=== PATIENT | male | born 1990 | race Caucasian/White ===

== ENCOUNTER 2021-04-19 18:48 | Emergency (ER) | payer OTHER ==
[2021-04-19 19:44] VITALS: BP 124/88
--- NOTE | 2021-04-19 19:53 | Emergency Department Report ---
ED Neuro Deficit HPI - General Chief Complaint: Weakness Stated Complaint: LEFT SIDE OF FACE NUMBNESS Time Seen by Provider: 04/19/21 19:45 Source: patient Mode of arrival: Ambulatory Limitations: No Limitations - History of Present Illness Initial Comments: The patient was evaluated in the emergency department for symptoms described in the history of present illness. He/she was evaluated in the context of the global COVID-19 pandemic, which necessitated consideration that the patient might be at risk for infection with the virus that causes COVID-19. Institutional protocols and algorithms that pertain to the evaluation of patients at risk for COVID-19 are in a state of rapid change based on information released by regulatory bodies including the CDC and federal and state organizations. These policies and algorithms were followed during the patient's care in the emergency department. Please note that these policies, procedures and recommendations changed on a rapid basis. 30-year-old male that presents to the emergency room reporting his left side of his face is drooping and numb since Saturday. Patient denies any other neurological deficits. Patient denies any chest pain or shortness of breath. Patient reports he does not take any medications on a daily basis. Onset/Timin -: days(s) Location: left face Presenting Symptoms: Present: Facial Droop/Numbness - Related Data Home Medications: Previous Rx's Medication Instructions Recorded Last Taken Type Mineral Oil/Petrolatum,White [Akwa 3.5 gm OP TID 10 Days #1 oint...g. 04/19/21 Unknown Rx Tears Ointment] Valacyclovir HCl [Valacyclovir] 1,000 mg PO TID #21 tablet 04/19/21 Unknown Rx predniSONE [Deltasone] 60 mg PO QDAY 15 Days #5 tab 04/19/21 Unknown Rx Allergies/Adverse Reactions: Allergies Allergy/AdvReac Type Severity Reaction Status Date / Time No Known Allergies Allergy Verified 04/19/21 19:44 ED Review of Systems ROS: Stated complaint: LEFT SIDE OF FACE NUMBNESS Other details as noted in HPI Comment: All other systems reviewed and negative ED Past Medical Hx - Past Medical History Previous Medical History?: No - Surgical History Past Surgical History?: No - Social History Smoking Status: Never Smoker - Medications Home Medications: Home Medications Medication Instructions Recorded Confirmed Last Taken Type Mineral Oil/Petrolatum,White [Akwa 3.5 gm OP TID 10 Days #1 oint...g. 04/19/21 Unknown Rx Tears Ointment] Valacyclovir HCl [Valacyclovir] 1,000 mg PO TID #21 tablet 04/19/21 Unknown Rx predniSONE [Deltasone] 60 mg PO QDAY 15 Days #5 tab 04/19/21 Unknown Rx ED Neuro Physical Exam - General Limitations: No Limitations General appearance: alert, in no apparent distress Suspected Stroke: No - Head Head exam: Present: atraumatic, normocephalic - Eye Eye exam: Present: PERRL, other (Not able to left eyebrow on the left side, left eye is tearing) - ENT ENT exam: Present: other (Left corner of the mouth droops and not able to make a full smile) - Neck Neck exam: Present: normal inspection, full ROM - Respiratory Respiratory exam: Absent: accessory muscle use - Cardiovascular Cardiovascular Exam: Present: regular rate - Back Exam Back exam: Present: normal inspection, full ROM - Neurological Exam Neurological exam: Present: alert, oriented X3, normal gait. Absent: motor sensory deficit - NIHSS Assessment Interval: Baseline 1a. Level of Consciousness: alert/keenly responsive 1b. LOC Questions: answers both correctly 1c. LOC Commands: performs tasks correctly 2. Best Gaze: normal 4. Facial Palsy: unilateral complete paralysis 5b. Motor Arm Right: no drift 5a. Motor Arm Left: no drift 6a. Motor Leg Left: no drift 6b. Motor Leg Right: no drift 7. Limb Ataxia: absent 9. Best Language: no aphasia 10. Dysarthria: normal 11. Extinction/Inattention: no abnormality - Psychiatric Psychiatric exam: Present: normal affect, normal mood - Skin Skin exam: Present: warm, dry, intact, normal color. Absent: rash ED Course Vital Signs 04/19/21 19:39 Temperature 98.7 F Pulse Rate 93 H Respiratory 18 Rate Blood Pressure 124/88 O2 Sat by Pulse 99 Oximetry Critical care attestation.: If time is entered above; I have spent that time in minutes in the direct care of this critically ill patient, excluding procedure time. ED Disposition Clinical Impression: Palsy, Ambrose's Disposition: 01 HOME / SELF CARE / HOMELESS Is pt being admited?: No Does the pt Need Aspirin: No Condition: Stable Instructions: Ambrose Palsy, Adult Additional Instructions: Please complete medications as prescribed. Follow-up with a primary care provider I have listed 1 below for your convenience. Por favor, complete los medicamentos segn lo prescrito. Seguimiento con un proveedor de atencin primaria que he enumerado 1 a continuacin para villegas conveniencia. Prescriptions: Mineral Oil/Petrolatum,White [Akwa Tears Ointment] 3.5 gm OP TID 10 Days #1 oint...g. predniSONE [Deltasone] 60 mg PO QDAY 15 Days #5 tab Valacyclovir HCl [Valacyclovir] 1,000 mg PO TID #21 tablet Referrals: BLANCA CHAUDHARI MD [Staff Physician] - 3-5 Days Forms: Work/School Release Form(ED) Print Language: IRISH
== END 2021-04-19 21:00 | disposition home or self-care (01) ==
LOC: ED 18:48
DX: G51.0 Bell's palsy (principal)
CPT/HCPCS: 99282